=== PATIENT | male | born 1990 | race Caucasian/White ===

== ENCOUNTER 2020-11-26 18:48 | Emergency (ER) | payer MEDICAID ==
[~2020-11-26] VITALS: Ht 175.3 cm; Wt 91.0 kg
[2020-11-26] MEDS ORDERED: IBUPROFEN 600MG TABLET PO STA (19:40)
[2020-11-26 20:04] LABS: BASOPHILS % 0.3 % (0.0-2.0); EOSINOPHILS % 0.9 % (0.0-5.0); HEMATOCRIT. 43.1 % (42.0-52.0); HEMOGLOBIN. 14.6 g/dL (14.0-18.0); MEAN CORPUSCULAR VOLUME 94.4 fL (80.0-94.0); MEAN PLATELET VOLUME 10.9 fl (7.4-10.4); MONOCYTES % 6.5 % (2.0-8.0); NEUTROPHILS % 68.3 % (40.0-76.0); PLATELET 169 x1000/uL (130-400); RED BLOOD CELL COUNT 4.56 mill/uL (4.7-6.1); RED CELL DISTRIBUTION WIDTH 12.7 % (11.6-14.6)
[2020-11-26 20:55] LABS: CHLORIDE 105 mEq/L (98-107)
[2020-11-26 21:57] VITALS: BP 128/90
== END 2020-11-26 22:01 | disposition home or self-care (01) ==
LOC: ER 18:48
DX: R07.89 Other chest pain (principal); R03.0 Elevated blood-pressure reading, without diagnosis of hypertension
CPT/HCPCS: 36415; 71045; 80053; 85025; 93005; 99285

== ENCOUNTER 2021-03-03 22:04 | Emergency (ER) | payer MEDICAID ==
[~2021-03-03] VITALS: Ht 170.2 cm; Wt 82.0 kg
[2021-03-03 22:18] VITALS: BP 137/68
== END 2021-03-03 23:00 | disposition left against medical advice (07) ==
LOC: ER 22:04
DX: H57.10 Ocular pain, unspecified eye (principal); Z53.21 Procedure and treatment not carried out due to patient leaving prior to being seen by health care provider
CPT/HCPCS: 99283

== ENCOUNTER 2021-11-04 12:50 | Emergency (ER) | payer MEDICAID ==
[~2021-11-04] VITALS: Ht 167.6 cm; Wt 70.0 kg
[2021-11-04 15:52] VITALS: BP 135/92
== END 2021-11-04 16:27 | disposition home or self-care (01) ==
LOC: ER 12:54
DX: S43.492A Other sprain of left shoulder joint, initial encounter (principal); S01.312A Laceration without foreign body of left ear, initial encounter; F22 Delusional disorders; R51.9 Headache, unspecified; W11.XXXA Fall on and from ladder, initial encounter; Y93.89 Activity, other specified; Y92.89 Other specified places as the place of occurrence of the external cause
CPT/HCPCS: 73030; 99283